=== PATIENT | male | born 1980 | race Caucasian/White ===

== ENCOUNTER 2024-10-21 06:13 | Day surgery (SDC) | payer OTHER, SELFPAY ==
[2024-10-21] VITALS (8 sets, daily range): BP systolic 110–133; BP diastolic 60–78; BMI 25.3
[2024-10-21] MEDS: NORMOSOL-R/PLASMALYTE-A 1000 IV (06:56)
[2024-10-21] MEDS: TYLENOL 1000 MG PO (07:02)
== END 2024-10-21 10:15 | disposition home or self-care (01) ==
LOC: SDS 06:13
PROVIDERS: ATTENDING PHYSICIAN Specialist
DX: N43.3 Hydrocele, unspecified (principal); Z30.2 Encounter for sterilization
CPT/HCPCS: 55040; 55060; 55250; 88302